=== PATIENT | female | born 1985 | race Two or more races ===

== ENCOUNTER 2022-09-27 20:04 | Emergency (ER) | payer SELFPAY ==
--- NOTE | 2022-09-27 20:30 | NUR ---
CALLED [facility] TRIAGE AND MD ASSESSMENT . NO ANSWER
--- NOTE | 2022-09-27 20:40 | NUR ---
CALLED [facility] TRIAGE AND MD AGUILAR. NO ANSWER.
--- NOTE | 2022-09-27 21:09 | NUR ---
CALLED [facility] TRIAGE AND MD AGUILAR. NO ANSWER.
== END 2022-09-27 21:23 | disposition left against medical advice (07) ==
LOC: ER 20:18
DX: Z53.21 Procedure and treatment not carried out due to patient leaving prior to being seen by health care provider (principal)